=== PATIENT | female | born 1980 | race Asian ===

== ENCOUNTER 2019-07-12 22:05 | Emergency (ER) | payer BC ==
[~2019-07-12] VITALS: Ht 162.6 cm; Wt 72.0 kg
[2019-07-13] MEDS ORDERED: ASPIRIN 81MG TABLET PO ONE
[2019-07-13 00:22] LABS: BASOPHILS % 0.9 % (0.0-2.0); EOSINOPHILS % 0.5 % (0.0-5.0); HEMATOCRIT. 42.2 % (36.0-48.0); LYMPHOCYTES % 17.5 % (20.0-50.0); MEAN CORPUSCULAR HEMOGLOBIN 27.9 pg (28.0-32.0); MEAN CORPUSCULAR VOLUME 83.6 fL (81.0-99.0); MEAN PLATELET VOLUME 9.1 fl (7.4-10.4); MONOCYTES % 4.6 % (2.0-8.0); NEUTROPHILS % 76.5 % (40.0-76.0); PLATELET 268 x1000/uL (130-400); RED BLOOD CELL COUNT 5.04 mill/uL (4.2-5.4)
[2019-07-13 00:26] LABS: CHLORIDE 103 mEq/L (98-107)
[2019-07-13 00:31] LABS: ETHANOL BLOOD < 10 mg/dL
[2019-07-13 00:35] LABS: CLARITY URINE CLOUDY (CLEAR); COLOR URINE YELLOW (YELLOW); KETONES URINE NEGATIVE (NEGATIVE); LEUKOCYTE ESTERASE URINE 2+ (NEGATIVE); NITRITE URINE NEGATIVE (NEGATIVE); OCCULT BLOOD URINE NEGATIVE (NEGATIVE); PH URINE 6.5 (4.5-8.0); PROTEIN URINE NEGATIVE (NEGATIVE); SPECIFIC GRAVITY URINE 1.005 (1.005-1.030); UROBILINOGEN URINE 0.2 E.U./dL (0.2-1.0)
[2019-07-13 00:37] LABS: T4 FREE 1.42 ng/dL (0.76-1.46)
[2019-07-13 01:00] LABS: OPIATES URINE SCREEN NEGATIVE (NEGATIVE); PHENCYCLIDINE URINE SCREEN NEGATIVE (NEGATIVE)
[2019-07-13 01:01] LABS: *AMPHETAMINES SCREEN URINE NEGATIVE (NEGATIVE); *BARBITURATES SCREEN URINE NEGATIVE (NEGATIVE); *BENZODIAZEPINES SCREEN URINE NEGATIVE (NEGATIVE); *COCAINE SCREEN URINE NEGATIVE (NEGATIVE); CANNABINOID URINE SCREEN NEGATIVE (NEGATIVE); METHADONE URINE SCREEN NEGATIVE (NEGATIVE)
[2019-07-13] MEDS ORDERED: CEFTRIAXONE 1 G PREMIX 50 ML IV SCH (01:45)
[2019-07-13] MEDS ORDERED: POTASSIUM CHLORIDE 20MEQ TABLET SR PO NR (01:45)
[2019-07-13 05:19] VITALS: BP 135/95
== END 2019-07-13 05:52 | disposition home or self-care (01) ==
LOC: ER 22:05
DX: R00.2 Palpitations (principal); N39.0 Urinary tract infection, site not specified; F41.9 Anxiety disorder, unspecified; I10 Essential (primary) hypertension; F32.9 Major depressive disorder, single episode, unspecified
CPT/HCPCS: 36415; 70450; 71045; 80053; 80305; 80320; 81003; 81025; 83036; 83605; 83690; 83880; 84439; 84443; 84484; 85025; 85379; 87086; 93005; 96365; 99284; J0696; Z7610; G0480

== ENCOUNTER 2019-08-05 07:53 | Emergency (ER) | payer BC ==
[~2019-08-05] VITALS: Ht 157.5 cm; Wt 60.0 kg
[2019-08-05 07:58] VITALS: BP 135/81
[2019-08-05] MEDS ORDERED: LORAZEPAM 0.5MG TABLET PO ONE (08:30)
== END 2019-08-05 08:53 | disposition home or self-care (01) ==
LOC: ER 07:53
DX: F41.9 Anxiety disorder, unspecified (principal); R45.0 Nervousness; I10 Essential (primary) hypertension
CPT/HCPCS: 99283